=== PATIENT | female | born 1995 | race Caucasian/White ===

== ENCOUNTER → 2023-08-08 | Outpatient (CLI) | payer BC | END | disposition home or self-care (01) | LOC: LABWHC1 08:40 | PROVIDERS: ATTEND Obstetrics & Gynecology | DX: O20.0 Threatened abortion (principal); Z3A.00 Weeks of gestation of pregnancy not specified | CPT/HCPCS: 36415; 84702; 86850 ==

== ENCOUNTER → 2023-08-12 | Outpatient (CLI) | payer BC | END | disposition home or self-care (01) | LOC: LABWHC1 07:39 | PROVIDERS: ATTEND Obstetrics & Gynecology | DX: O20.0 Threatened abortion (principal); Z3A.00 Weeks of gestation of pregnancy not specified | CPT/HCPCS: 36415; 84702 ==

== ENCOUNTER → 2023-08-28 | Outpatient (CLI) | payer BC ==
[2023-08-28 11:21] LABS: HCT 41.6 % (37.2-46.3); HGB 13.4 g/dL (12.0-15.0); MCHC 32.2 g/dL (32.0-37.0); MCV 86.8 FL (80.0-97.0); Mean Platelet Volume 12.1 FL (9.5-12.2); NRBC Per 100 WBC 0 X 10*3/uL (0.00-0.01); Platelet Count 246 X 10*3/uL (140-440); RBC 4.79 X 10*6/uL (4.10-5.20); RDW 13.2 % (11.5-14.5); WBC 8.82 X 10*3/uL (4.50-10.00)
== END | disposition home or self-care (01) ==
LOC: LABPAT 07:47
PROVIDERS: ATTEND Obstetrics & Gynecology
DX: Z01.812 Encounter for preprocedural laboratory examination (principal); O02.1 Missed abortion; Z3A.00 Weeks of gestation of pregnancy not specified
CPT/HCPCS: 85027; 86850; 86900; 86901

== ENCOUNTER → 2023-08-29 | Day surgery (SDC) | payer BC ==
[~2023-08-29] MED LIST: ACETAMINOPHEN IV (For NPO) 1,000 MG/100 ML VIAL ONE; DEXAMETHASONE SOD PHOSPHATE 4 MG/ML 1 ML VIAL IV ONE; HYDROmorphone 0.5 MG/0.5 ML SYRINGE IVP PRN; LACTATED RINGERS 1,000 ML IV SCH; LIDOCAINE 1% (10MG/ML) FOR IV START INTRADERMA PRN; LIDOCAINE 1% INJ 10MG/ML (20 ML MDV) ONE; LIDOCAINE 1%-EPI 1:100,000 50 ML VIAL SQ ONE; MIDAZOLAM 2 MG/2 ML VIAL ONE; ONDANSETRON 4 MG/2 ML VIAL IVP ONE; PROPOFOL 10 MG/ML 20 ML VIAL IV ONE; Pre Op ABX Message 1 EACH MISC MISCELLANE ONE; SCOPOLAMINE 1 MG/72 HR PATCH TRANSDERM ONE; droPERidol 5 MG/2 ML VIAL IVP ONE; fentaNYL (PF) 50 MCG/ML 2 ML AMP ONE
[2023-08-29 12:57] VITALS: RESP 16
--- NOTE | 2023-08-29 13:45 | P.OP ---
Date of Procedure: 08/29/23 Preoperative Diagnosis: Missed Postoperative Diagnosis: Same Procedure(s) Performed: Suction dilation and curettage Anesthesia: MAC Surgeon: Mary Covington Estimated Blood Loss (ml): 50 IV fluids (ml): 500 Urine output (ml): 15 Pathology: other (Products of conception) Condition: stable Disposition: PACU Indications for Procedure: Findings of missed by ultrasound. Operative Findings: Exam under anesthetic the uterus is approximately 10 weeks size and freely mobile. Appropriate products of conception obtained and suction D&C. Postprocedure uterus is firm and approximately 8 week size. Description of Procedure: After the patient was met in preoperative holding area and all questions were answered, she was taken to the operating room where anesthetic was administered without incident. Appropriate timeout procedure was undertaken. She was positioned, prepped and draped in the dorsal high lithotomy position. Bladder was drained for a scant amount of urine. Exam under anesthetic was undertaken and the uterus was freely mobile and 10 weeks size. Weighted speculum was placed in the vagina and the cervix was grasped anteriorly with a single-tooth tenaculum. Paracervical block with lidocaine plus epinephrine was placed. Uterus was sounded to 11 cm. The cervix was sequentially dilated using Hegar dilators. This allowed for passage of the 8-Danish curved suction curette. This was introduced and the uterus was circumferentially suction curettaged. Large amount of tissue was obtained. The curet was removed and the sharp banjo curette was then introduced and the uterus curetted for an additional amount of tissue. Final pass was undertaken with the suction curet with scant further tissue noted. The curet was removed from the cervix as was the tenaculum. Bimanual examination was repeated and the uterus felt firm on approximate 8 week size. Speculum was replaced in the vagina and the cervix was observed. No active bleeding was noted. The procedure was then terminated and the patient was awoken from anesthetic without incident. All counts reported to me as correct. The patient was transported to recovery area in good condition. Maternal Rh status is positive.
[2023-08-29 14:10] VITALS: TEMP 96.8
[2023-08-29 15:22] VITALS: BP 134/83; PULSE 85
== END | disposition home or self-care (01) ==
LOC: OR 12:04
PROVIDERS: ATTEND Obstetrics & Gynecology
DX: O02.1 Missed abortion (principal)
CPT/HCPCS: 59820; 88305; J2250; J1100; J2405; J2001; J3010; J0131; J2704

== ENCOUNTER 2024-10-11 03:52 | Inpatient (IN) | payer BC ==
[2024-10-11] MEDS ORDERED: CARBOPROST TROMETHAMINE 250 MCG/ML 1 ML AMP IM PRN (04:09)
[2024-10-11] MEDS ORDERED: TRANEXAMIC 1,000 MG/100ML-NACL 1,000 MG in EMPTY BAG 1 BAG IV PRN (04:09)
[2024-10-11] MEDS ORDERED: miSOPROStoL 200 MCG TAB RECTAL PRN (04:09)
[2024-10-11] MEDS ORDERED: OXYTOCIN 10 UNIT/ML 1 ML VIAL IM PRN (04:09)
[2024-10-11] MEDS ORDERED: LIDOCAINE 0.5% (PF) 5 MG/ML (50 ML SDV) SQ PRN (04:09)
[2024-10-11] MEDS ORDERED: miSOPROStoL 200 MCG TAB PO PRN (04:09)
[2024-10-11] MEDS ORDERED: TERBUTALINE 1 MG/ML VIAL SQ PRN (04:09)
[2024-10-11] MEDS: LACTATED RINGERS 1,000 ML IV SCH (04:29)
[2024-10-11 04:41] LABS: Basophils % (A) 0 %; Eosinophils # (A) 0.1 k/uL (0-0.7); Eosinophils % (A) 1 %; HCT 45.9 % (34.0-46.0); HGB 14.1 gm/dL (11.4-16.0); Lymphocytes # (A) 2.7 k/uL (1.0-4.8); Lymphocytes % (A) 21 %; MCH 26.8 pg (25.0-35.0); MCHC 30.6 g/dL (31.0-37.0); MCV 87.4 fL (80.0-100.0); Mean Platelet Volume 11.1; Monocytes # (A) 0.4 k/uL (0-1.0); Monocytes % (A) 3 %; Neutrophils # (A) 9.3 k/uL (1.3-7.7); Neutrophils % (A) 73 %; Platelet Count 156 k/uL (150-450); RBC 5.26 m/uL (3.80-5.40); RDW 14.3 % (11.5-15.5); WBC 12.7 k/uL (3.8-10.6)
[2024-10-11] MEDS ORDERED: ROPIVACAINE 5 MG/ML 30 ML VIAL ONE (04:50)
[2024-10-11] MEDS ORDERED: fentaNYL (PF) 50 MCG/ML 5 ML AMP ONE (04:50)
[2024-10-11] MEDS ORDERED: SODIUM CHLORIDE 0.9% 250 ML BAG ONE (04:50)
--- NOTE | 2024-10-11 04:51 | P.HPOB ---
History of Present Illness H&P Date: 10/11/24 Chief Complaint: 40 and 0/7 weeks, labor Patient is a 28-year-old 3 para 1-0-1-1 admitted at 40-0/7 weeks as established by last menstrual period and confirmed by second trimester ultrasound. She is admitted in active labor with all signs reassuring, category 1 heart rate tracing on arrival. Her has been entirely uncomplicated and group B strep status is negative. Obstetrical history: 3 para 1-0-1-1 with 1 term vaginal delivery without complications. EDC of 10/10/2024 was established by last menstrual period and confirmed by second trimester ultrasound. Laboratory workup demonstrates a blood type of O+ with a negative antibody screen. Rubella status is immune. The remainder of the laboratory workup is within normal limits. Early Glucola and second trimester Glucola were normal. Group B strep status is negative. Gynecologic history: Unremarkable with no history of any infections to include STDs. Review of Systems Review of systems is confined to history of present illness. Past Medical History Past Medical History: No Reported History Additional Past Medical History / Comment(s): miscarriage History of Any Multi-Drug Resistant Organisms: None Reported Past Surgical History: Orthopedic Surgery Additional Past Surgical History / Comment(s): wisdom teeth removed, right arthroscopic knee surg., several moles removed w/sedation Past Anesthesia/Blood Transfusion Reactions: No Reported Reaction Past Psychological History: Anxiety Smoking Status: Never smoker Past Alcohol Use History: None Reported Additional Past Alcohol Use History / Comment(s): quit smoking 2016, <ppd for 5 yrs. Past Drug Use History: None Reported - Past Family History Mother Family Medical History: No Reported History Medications and Allergies Home Medications Medication Instructions Recorded Confirmed Type Vit No.179/Iron/Folic 1 each PO DAILY 08/27/23 08/27/23 History [ Tablet] buPROPion XL [Wellbutrin XL] 150 mg PO DAILY 08/27/23 08/27/23 History Allergies Allergy/AdvReac Type Severity Reaction Status Date / Time sulfamethoxazole Allergy Unknown Verified 10/11/24 03:54 [From Bactrim] Childhood trimethoprim [From Bactrim] Allergy Unknown Verified 10/11/24 03:54 Childhood Exam Vital Signs Temp Pulse Resp BP 10/11/24 04:19 97.3 F L 105 H 16 124/75 Intake and Output 10/10/24 10/10/24 10/11/24 14:59 22:59 06:59 Other: # Voids 1 Weight 96.615 kg In general, this is a well-developed, well-nourished white female in no acute di stress. Her heart has a regular rhythm and rate without murmur. Her lungs are clear to auscultation bilaterally in all [place]. Her abdomen is gravid, nondistended, has normal active bowel sounds, soft, nontender, and without any palpable masses aside from the uterine fundus. Her extremities are without any cyanosis, clubbing, or edema and are nontender to palpation bilaterally. Digital cervical examination performed by the nursing staff demonstrates her cervix to be approximately 7 cm dilated, 70 to 80% effaced, with the vertex and presentation at -2 station. There is a bulging bag of water. Results Result Diagrams: 10/11/24 04:24 Abnormal Lab Results - Last 24 Hours (Table) 10/11/24 Range/Units 04:24 WBC 12.7 H (3.8-10.6) k/uL MCHC 30.6 L (31.0-37.0) g/dL Neutrophils # 9.3 H (1.3-7.7) k/uL Assessment and Plan (1) Active labor at term Current Visit: Yes Status: Acute Code(s): [id number] - SNOMED Code(s): 94595062 Plan: The patient is admitted for active management of labor. She has requested an epidural catheter which we will attempt to place prior to artificial rupture of membranes. She will continue to have close maternal and surveillance and expectant management will be practiced.
[2024-10-11] MEDS ORDERED: diphenhydrAMINE 50 MG CAP PO PRN (08:00)
[2024-10-11] MEDS ORDERED: diphenhydrAMINE 50 MG/ML 1 ML VIAL IVP PRN ×2 (08:00)
[2024-10-11] MEDS ORDERED: diphenhydrAMINE 25 MG CAP PO PRN (08:00)
[2024-10-11] MEDS ORDERED: HYDROCORTISONE 2.5% RECTAL CREAM 30 GM TUBE RECTAL PRN (08:00)
[2024-10-11] MEDS ORDERED: LANOLIN CREAM 1 GM TUBE TOPICAL PRN (08:00)
[2024-10-11] MEDS ORDERED: OXYTOCIN 30 UNITS/500 ML NS 30 UNIT in SALINE 1 500ML.BAG IV SCH (08:00)
[2024-10-11] MEDS ORDERED: SIMETHICONE 80 MG CHEWABLE PO PRN (08:00)
[2024-10-11] MEDS ORDERED: ZOLPIDEM 5 MG TAB PO PRN (08:00)
[2024-10-11] MEDS ORDERED: BENZOCAINE/MENTHOL SPRAY 1 GM/SPRAY AEROSOL TOPICAL PRN (08:00)
[2024-10-11] MEDS: METHYLERGONOVINE 0.2 MG/ML 1 ML AMP IM PRN (08:04)
--- NOTE | 2024-10-11 08:05 | P.PROBDLV ---
Vaginal Delivery Note - . Vaginal Delivery Note: The patient is a 28-year-old 3 para 1-0-1-1 admitted at 40-0/7 weeks by good dating parameters. She is admitted in active labor with all signs reassuring, category 1 heart rate tracing. Her was entirely uncomplicated and group B strep status is negative. On labor and delivery, she was found to be 7 cm dilated had an epidural catheter placed for analgesia. She then underwent artificial rupture of membranes for clear fluid. She made progre ss over the course of the next couple of hours to complete and then pushed over the course of approximately 15 to 20 minutes to a normal spontaneous vaginal delivery of a viable 9 pound 4 ounce baby girl with Apgars of 9 at 1 minute and 9 at 5 minutes delivered in the direct occiput anterior position. The placenta was delivered spontaneously, intact, and grossly normal with a grossly normal, centrally inserted three-vessel cord. There were no significant lacerations the perineum, vagina, or cervix. Estimated blood loss for the case was approximately 200 mL. There were no complications. Both mother and are resting comfortably in recovery.
[2024-10-11] MEDS: OXYTOCIN 30 UNITS/500 ML NS 30 UNIT in SALINE 1 500ML.BAG IV SCH (08:09)
[2024-10-11] MEDS: SENNOSIDES-DOCUSATE SODIUM 1 EACH TAB PO SCH (08:33)
[2024-10-11] MEDS: IBUPROFEN 800 MG TAB PO PRN (12:17)
[2024-10-11] MEDS: ACETAMINOPHEN TAB 500 MG TAB PO PRN (17:30)
[2024-10-12 07:35] LABS: Basophils % (A) 0 %; Eosinophils # (A) 0.1 k/uL (0-0.7); Eosinophils % (A) 1 %; HCT 36.1 % (34.0-46.0); HGB 11.4 gm/dL (11.4-16.0); Lymphocytes # (A) 2.7 k/uL (1.0-4.8); Lymphocytes % (A) 21 %; MCH 27.6 pg (25.0-35.0); MCHC 31.5 g/dL (31.0-37.0); MCV 87.8 fL (80.0-100.0); Mean Platelet Volume 11.5; Monocytes # (A) 0.4 k/uL (0-1.0); Monocytes % (A) 4 %; Neutrophils # (A) 9.1 k/uL (1.3-7.7); Neutrophils % (A) 73 %; Platelet Count 165 k/uL (150-450); RBC 4.11 m/uL (3.80-5.40); RDW 14.5 % (11.5-15.5); WBC 12.5 k/uL (3.8-10.6)
--- NOTE | 2024-10-12 08:17 | P.DS ---
Providers Date of admission: 10/11/24 04:12 Expected date of discharge: 10/12/24 Attending physician: Nanci Naqvi Primary care physician: Stated None - Discharge Diagnosis(es) (1) Normal spontaneous vaginal delivery Current Visit: Yes Status: Acute Hospital Course: Patient presented in labor. She underwent a normal vaginal delivery. course has been uneventful. She denies nausea, vomiting, chest pain, shortness of breath or calf pain. Patient will be discharged home day #1 in stable condition to follow-up with me in 6 weeks. Plan - Discharge Summary New Discharge Prescriptions: New Ibuprofen [Motrin] 800 mg PO Q8HR PRN #30 tab PRN Reason: Pain No Action buPROPion XL [Wellbutrin XL] 150 mg PO DAILY Vit No.179/Iron/Folic [ Tablet] 1 each PO DAILY Discharge Medication List Vit No.179/Iron/Folic [ Tablet] 1 each PO DAILY 08/27/23 [History] buPROPion XL [Wellbutrin XL] 150 mg PO DAILY 08/27/23 [History] Ibuprofen [Motrin] 800 mg PO Q8HR PRN #30 tab 10/12/24 [Rx] Follow up Appointment(s)/Referral(s): Nanci Naqvi DO [Doctor of Osteopathic Medicine] - 11/23/24 1:15 pm Discharge Disposition: HOME SELF-CARE
[2024-10-12 09:08] VITALS: BP 119/76; PULSE 87; RESP 18; TEMP 98.4
== END 2024-10-12 10:55 | disposition home or self-care (01) | DRG 807 ==
LOC: FBPOP 03:52 → 4FBP 04:12
PROVIDERS: ADMIT Obstetrics & Gynecology; ATTEND Obstetrics & Gynecology
PROC: 10E0XZZ Delivery of Products of Conception, External Approach (ICD-10-PCS; principal; 2024-10-11)
PROC: 10907ZC Drainage of Amniotic Fluid, Therapeutic from Products of Conception, Via Natural or Artificial Opening (ICD-10-PCS; 2024-10-11)
DX: O99.344 Other mental disorders complicating childbirth (principal); Z37.0 Single live birth; F41.9 Anxiety disorder, unspecified; Z3A.40 40 weeks gestation of pregnancy; Z79.899 Other long term (current) drug therapy; Z88.2 Allergy status to sulfonamides; Z88.1 Allergy status to other antibiotic agents; Z87.59 Personal history of other complications of pregnancy, childbirth and the puerperium
CPT/HCPCS: 85025; 86850; 86900; 86901; 99213